=== PATIENT | male | born 1970 | race Caucasian/White ===

== ENCOUNTER 2023-07-17 15:00 | Emergency (ER) | payer BC, MEDICAID ==
[~2023-07-17] VITALS: Ht 175.3 cm; Wt 68.0 kg
[2023-07-17 15:08] VITALS: O2SAT 97
[2023-07-17 17:25] LABS: BASOPHILS % (AUTO) 0.3 % (0.0-2.0); EOSINOPHILS # (AUTO) 0.2 K/uL (0.0-0.7); EOSINOPHILS % (AUTO) 2.7 % (0.0-7.0); HEMATOCRIT 42.5 % (36.7-47.1); HEMOGLOBIN 14.3 g/dL (12.5-16.3); LYMPHOCYTES # (AUTO) 0.4 K/uL (0.8-4.8); MEAN CORPUSCULAR HEMOGLOBIN 30.1 uug (23.8-33.4); MEAN CORPUSCULAR HGB CONC 34 g/dL (32.5-36.3); MEAN CORPUSCULAR VOLUME 89.9 fL (73.0-96.2); MONOCYTES # (AUTO) 0.4 K/uL (0.1-1.30); MONOCYTES % (AUTO) 6.5 % (0.0-11.0); NEUTROPHILS % (AUTO) 83.5 % (38.5-71.5); PLATELET COUNT (AUTO) 145 K/uL (152-348); RED BLOOD CELL COUNT(AUTO) 4.73 MIL/uL (4.06-5.63)
[2023-07-17 17:31] LABS: *BILIRUBIN,URIN NEGATIVE (NEGATIVE); *BLOOD, URINE NEGATIVE (NEGATIVE); *CLARITY,URINE CLEAR (CLEAR); *COLOR,URINE YELLOW (YELLOW); *KETONES,URINE NEGATIVE (NEGATIVE); *PROTEIN,URINE TRACE (NEGATIVE); LEUKOCYTE ESTERASE ,URINE NEGATIVE (NEGATIVE); NITRITE, URINE NEGATIVE (NEGATIVE); PH,URINE 7.5 (5.0-8.0); UGLUCOSE NEGATIVE (NEGATIVE)
[2023-07-17 17:40] LABS: DIFFERENTIAL COMMENT 1
[2023-07-17 17:44] LABS: CALCIUM 8.6 mg/dL (8.5-10.1); CARBON DIOXIDE 28 mmol/L (21-32); CHLORIDE 102 mmol/L (98-107); CREATININE 0.9 mg/dL (0.6-1.3); GLUCOSE 105 mg/dL (74-106); POTASSIUM 3.6 mmol/L (3.5-5.1); SODIUM SERUM 138 mmol/L (136-145); UREA NITROGEN, BLOOD 11 mg/dL (7-18)
[2023-07-17 18:00] LABS: ALANINE AMINOTRANSFERASE 27 U/L (16-63); ALKALINE PHOSPHATASE 55 U/L (50-136); ASPARTATE AMINOTRANSFERASE 16 U/L (15-37); BILIRUBIN,DIRECT 0.2 mg/dL (0.0-0.2); BILIRUBIN,TOTAL 0.9 mg/dL (0.2-1.0); LIPASE 23 U/L (16-77); TOTAL PROTEIN, SERUM 7.6 g/dL (6.4-8.2)
[2023-07-17] MEDS ORDERED: METR500T PO ×2 (18:12→18:20)
[2023-07-17] MEDS ORDERED: HYDR-3976 PO ×2 (18:12→18:20)
[2023-07-17] MEDS ORDERED: CIPR-262 PO ×2 (18:12→18:20)
== END 2023-07-17 18:28 | disposition home or self-care (01) ==
LOC: ER 15:06
DX: K57.92 Diverticulitis of intestine, part unspecified, without perforation or abscess without bleeding (principal); Z98.890 Other specified postprocedural states; Z79.899 Other long term (current) drug therapy; Z88.5 Allergy status to narcotic agent
CPT/HCPCS: 36415; 83690; 84484; 85025; 85730; A4606; A4663

== ENCOUNTER 2023-07-26 11:34 | Emergency (ER) | payer BC ==
[~2023-07-26] VITALS: Ht 175.3 cm; Wt 68.0 kg
[~2023-07-26 11:34] MED LIST: CIPR-262 PO; HYDR-3976 PO; METR500T PO
[2023-07-26 12:03] VITALS: O2SAT 99
[2023-07-26] MEDS ORDERED: IV NORMAL SALINE 1000 ML BAG IV ONE (12:30)
[2023-07-26 12:53] LABS: BASOPHILS # (AUTO) 0.1 K/UL (0.0-0.2); BASOPHILS % (AUTO) 1.2 % (0.0-2.0); EOSINOPHILS # (AUTO) 0.1 K/uL (0.0-0.7); EOSINOPHILS % (AUTO) 2.1 % (0.0-7.0); HEMATOCRIT 41.7 % (36.7-47.1); HEMOGLOBIN 13.7 g/dL (12.5-16.3); LYMPHOCYTES % (AUTO) 22.7 % (20.5-51.5); MEAN CORPUSCULAR HEMOGLOBIN 29.8 uug (23.8-33.4); MEAN CORPUSCULAR HGB CONC 33 g/dL (32.5-36.3); MEAN CORPUSCULAR VOLUME 90.5 fL (73.0-96.2); MONOCYTES # (AUTO) 0.4 K/uL (0.1-1.30); MONOCYTES % (AUTO) 9.8 % (0.0-11.0); NEUTROPHILS # (AUTO) 2.9 K/uL (1.8-8.9); NEUTROPHILS % (AUTO) 64.2 % (38.5-71.5); PLATELET COUNT (AUTO) 238 K/uL (152-348); WHITE BLOOD COUNT (AUTO) 4.6 K/uL (3.6-10.2)
[2023-07-26 13:08] LABS: DIFFERENTIAL COMMENT 1
[2023-07-26 13:13] LABS: CALCIUM 8.6 mg/dL (8.5-10.1); CREATININE 0.9 mg/dL (0.6-1.3)
[2023-07-26 13:19] LABS: ALBUMIN 3.8 g/dL (3.4-5.0); BILIRUBIN,TOTAL 0.5 mg/dL (0.2-1.0); MAGNESIUM 1.8 mg/dL (1.8-2.4); TOTAL PROTEIN, SERUM 7.1 g/dL (6.4-8.2)
[2023-07-26] MEDS ORDERED: SWABABLE VALVE TRANSFER SET EA MC ONE (13:31)
[2023-07-26] MEDS ORDERED: IOHEXOL 300MG/ML 100 ML INFUS..BTL ONE (13:31)
[2023-07-26] MEDS ORDERED: IV NORMAL SALINE 250 ML IV ONE (13:31)
[2023-07-26] MEDS ORDERED: DICY10CA13 PO ×2 (15:40→16:39)
== END 2023-07-26 16:41 | disposition home or self-care (01) ==
LOC: ER 11:37
DX: R19.7 Diarrhea, unspecified (principal); Z79.899 Other long term (current) drug therapy; Z88.5 Allergy status to narcotic agent
CPT/HCPCS: 99285; 74177; 96360; 80053; 83690; 83735; 85025; 36415; Q9967; J7040; A4606; A4663